=== PATIENT | male | born 2000 ===

== ENCOUNTER 2021-09-03 12:46 | Emergency (ER) | payer SELFPAY ==
[2021-09-03 14:15] VITALS: BP 139/85
[2021-09-03] MEDS ORDERED: ACETAMINOPHEN 325 MG TAB PO ONE (14:15)
[2021-09-03 16:11] LABS: Hematocrit 43.6 % (35.5-45.6); Hemoglobin 14.7 gm/dl (11.8-15.2); Mean Corpuscular HGB Conc 34 % (32-34); Mean Corpuscular Volume 86 fl (84-94); Platelet Count 307 K/mm3 (140-440); Red Blood Count 5.07 M/mm3 (3.65-5.03); Red Cell Distribution Width 14.7 % (13.2-15.2)
[2021-09-03 16:24] LABS: Alanine Aminotransferase 25 units/L (7-56); Albumin 4.5 g/dL (3.9-5); BUN/Creatinine Ratio 8; Blood Urea Nitrogen 10 mg/dL (9-20); Calcium 10.4 mg/dL (8.4-10.2); Hemolysis Index 1
[2021-09-03] MEDS ORDERED: dexAMETHasone 4 MG/ML VIAL PO ONE (17:51)
[2021-09-03] MEDS ORDERED: CLINDAMYCIN 150 MG/ML VIAL 6 ML IM STA (17:52)
[2021-09-03 18:13] LABS: Band Neutrophils # (Manual) 1.4 K/mm3; Basophils % (Manual) 0 % (0.0-1.8); Eosinophils % (Manual) 0 % (0.0-4.3); Total Cells Counted 100
[2021-09-03 18:14] LABS: Platelet Estimate Consistent w Auto; RBC Morphology Normal
--- NOTE | 2021-09-03 19:43 | Emergency Department Report ---
- General Chief Complaint: Sore Throat Stated Complaint: STIFF NECK/SWOLLEN THROAT/HEADACHE Time Seen by Provider: 09/03/21 16:57 Source: patient Mode of arrival: Ambulatory Limitations: No Limitations - History of Present Illness Initial Comments: 21-year-old F [place] male past medical history of recurrent strep infections. Presents emergency department with his mom complaining of a few day history of sore throat that has been progressively worsening since the onset. Reports having some worsening with swelling eating and drinking since the onset no fever but occasional chills and pain to the anterior neck. Reports no abdominal pain no flank pain no rashes no voice change MD Complaint: sore throat Severity: mild Quality: dull Consistency: constant Worsens With: nothing Context: sick contacts Associated Symptoms: sore throat. denies: chest pain, shortness of breath, nausea, confusion, weight loss, epistaxis, hoarseness - Related Data Previous Rx's Medication Instructions Recorded Last Taken Type Chlorhexidine Mouthwash [Peridex] 15 ml MM BID #1 bottle 09/03/21 Unknown Rx Clindamycin [Clindamycin CAP] 150 mg PO Q8HR #21 capsule 09/03/21 Unknown Rx Lidocaine Viscous 2% 5 ml MM Q3H PRN #120 udc 09/03/21 Unknown Rx Allergies Allergy/AdvReac Type Severity Reaction Status Date / Time Penicillins Allergy Hives Verified 09/03/21 14:09 ED Review of Systems ROS: Stated complaint: STIFF NECK/SWOLLEN THROAT/HEADACHE Other details as noted in HPI Comment: All other systems reviewed and negative ED Past Medical Hx - Past Medical History Hx Asthma: Yes - Surgical History Past Surgical History?: No - Medications Home Medications: Home Medications Medication Instructions Recorded Confirmed Last Taken Type Chlorhexidine Mouthwash [Peridex] 15 ml MM BID #1 bottle 09/03/21 Unknown Rx Clindamycin [Clindamycin CAP] 150 mg PO Q8HR #21 capsule 09/03/21 Unknown Rx Lidocaine Viscous 2% 5 ml MM Q3H PRN #120 udc 09/03/21 Unknown Rx ED Physical Exam - General Limitations: No Limitations General appearance: alert, in no apparent distress - Head Head exam: Present: atraumatic, normocephalic - Eye Eye exam: Present: normal appearance, PERRL, EOMI Pupils: Present: normal accommodation - ENT ENT exam: Present: normal exam, normal orophraynx, mucous membranes moist - Expanded ENT Exam Expanded Throat exam: Positive: tonsillar erythema, tonsillomegaly, tonsillar exudate - Neck Neck exam: Present: normal inspection, full ROM, lymphadenopathy. Absent: meningismus, thyromegaly - Respiratory Respiratory exam: Present: normal lung sounds bilaterally. Absent: respiratory distress, wheezes, rales - Cardiovascular Cardiovascular Exam: Present: regular rate, normal rhythm. Absent: systolic murmur, diastolic murmur, rubs, gallop - GI/Abdominal GI/Abdominal exam: Present: soft, normal bowel sounds - Rectal Rectal exam: Present: deferred - Extremities Exam Extremities exam: Present: normal inspection - Back Exam Back exam: Present: normal inspection - Neurological Exam Neurological exam: Present: alert, oriented X3 - Psychiatric Psychiatric exam: Present: normal affect, normal mood - Skin Skin exam: Present: warm, dry, intact, normal color. Absent: rash ED Course Vital Signs 09/03/21 14:13 Temperature 102.7 F H Pulse Rate 106 H Respiratory 18 Rate Blood Pressure 139/85 [Right] O2 Sat by Pulse 99 Oximetry ED Medical Decision Making - Lab Data Result diagrams: 09/03/21 15:49 09/03/21 15:49 Critical care attestation.: If time is entered above; I have spent that time in minutes in the direct care of this critically ill patient, excluding procedure time. ED Disposition Clinical Impression: Exudative pharyngitis Disposition: 01 HOME / SELF CARE / HOMELESS Is pt being admited?: No Does the pt Need Aspirin: No Condition: Stable Instructions: Strep Throat, Adult, Pharyngitis, Viral Respiratory Infection, Infectious Mononucleosis, [id number] Additional Instructions: He was seen in the emergency department today for sore throat with swelling and symptoms are suggestive of exudative pharyngitis or strep throat with the possibility of infectious mononucleosis there is no evidence of meningitis. Patient prescribed antibiotics and as directed for the full course of the medication follow-up to primary care physician within 2 days. Return to emergency department should you experience worsening uncontrolled pain, tongue swelling, difficulty swallowing or change in your voice or trouble breathing. Prescriptions: Clindamycin [Clindamycin CAP] 150 mg PO Q8HR #21 capsule Lidocaine Viscous 2% 5 ml MM Q3H PRN #120 udc PRN Reason: Pain, Moderate (4-6) Chlorhexidine Mouthwash [Peridex] 15 ml MM BID #1 bottle Referrals: RUPAL SHARMA MD [Primary Care Provider] - 3-5 Days
== END 2021-09-03 21:38 | disposition home or self-care (01) ==
LOC: ED 12:46
DX: J02.9 Acute pharyngitis, unspecified (principal); J45.909 Unspecified asthma, uncomplicated; Z88.0 Allergy status to penicillin
CPT/HCPCS: 36415; 80053; 85007; 85025; 87116; 87430; 96372; 99283; J1100